=== PATIENT | female | born 1995 | race Caucasian/White ===

== ENCOUNTER 2017-08-04 20:43 | Emergency (ER) | payer OTHER ==
[2017-08-04 21:00] VITALS: O2SAT 96
[2017-08-04] MEDS ORDERED: LIDOCAINE 1% 10 ML VIAL INJ ONE (21:08)
[2017-08-04] MEDS ORDERED: SULFA/TRIMETH 800/160 (DS) TAB 1 EA TAB PO ONE (21:28)
[2017-08-04] MEDS ORDERED: TETANUS,DIPHTHERIA,PERTUSSIS 1 EA SYG IM ONE (21:45)
--- NOTE | 2017-08-04 21:48 | ED.PDOC ---
History of Present Illness - General Chief Complaint: Laceration Stated Complaint: hand laceration Time Seen by Provider: 08/04/17 20:45 Source: patient Exam Limitations: no limitations - History of Present Illness Initial Comments: the patient is a 22-year-old female presenting to emergency room secondary to a laceration over the metacarpal phalangeal joint of the second digit of the right hand. She cut it with a cooking on a farm accident. Laceration is approximately 1.5 cm in length. It does extend down to a partial laceration of the tendon. Laceration is approximately 30% the depth of the tendon. The finger appears to be neurovascularly intact. Tendon function remains intact. Estimated blood loss probably 5 cc. She does have a very small area just distal to the laceration of mild numbness. This extinguishes prior to the proximal interphalangeal joint. Timing/Duration: momentarily Severity: mild Improving Factors: nothing Worsening Factors: nothing Associated Symptoms: denies symptoms Allergies/Adverse Reactions: Allergies NO KNOWN ALLERGY Allergy (Verified 08/04/17 21:11) Home Medications: Ambulatory Orders Abilify 30 05/15/14 Lexapro 10 QAM 05/15/14 Trazodone HCl 05/15/14 Sulfa/Trimeth 800/160 (Ds) Tab [Bactrim DS Tab] 1 ea PO DAILY #3 tab 08/04/17 Review of Systems - Review of Systems Constitutional: States: no symptoms reported EENTM: States: no symptoms reported Respiratory: States: no symptoms reported Cardiology: States: no symptoms reported Gastrointestinal/Abdominal: States: no symptoms reported Genitourinary: States: no symptoms reported Musculoskeletal: States: no symptoms reported Skin: States: see HPI Neurological: States: see HPI Endocrine: States: no symptoms reported All other Systems: No Change from Baseline Past Medical History (General) - Patient Medical History Hx Seizures: No Hx Asthma: No Hx Cardiac Disorders: No Hx Diabetes: No Surgical History: no surgical history - Vaccination History Hx Tetanus, Diphtheria Vaccination: No Hx Influenza Vaccination: No Hx Pneumococcal Vaccination: No - Social History Hx Tobacco Use: No Hx Chewing Tobacco Use: No Hx Alcohol Use: No Hx Substance Use: No Hx Substance Use Treatment: No Hx Depression: No Hx Physical Abuse: No Hx Emotional Abuse: No Hx Suspected Abuse: No - Female History Hx Last Menstrual Period: 03/31/14 Patient : No - ?. Family Medical History - Family History Mother Family History: No Known Living Status: Still Living Hx Family Asthma: No Hx Family Congestive Heart Failure: No Hx Family Hypertension: No Hx Family Stroke: No Hx Cardiac Disease: No Hx Family Diabetes: No Hx Family Cancer: No Physical Exam - Physical Exam General Appearance: Alert, Comfortable, No apparent distress Eye Exam: bilateral normal Ears, Nose, Throat: hearing grossly normal Respiratory: no respiratory distress, no accessory muscle use Cardiovascular/Chest: normal peripheral pulses, no edema Peripheral Pulses: radial,right: 2+, radial,left: 2+ Rectal Exam: deferred Extremity: normal range of motion, no pedal edema, normal capillary refill 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 There is a partial tendon laceration that is not deep enough to sew. Tendon function remains intact. The patient is to avoid full flexion of the finger for the next 6-8 weeks. Risk and benefits of repair were explained and patient agreed to proceed. Wound was irrigated with 250 cc of sterile saline. 1% lidocaine without epinephrine was used 1 cc for local anesthetic. 3 simple sutures of 4- 0 Ethilon were used for reapproximation. Estimated blood loss is 5 cc. Patient tolerated the repair well. She was given a dose of Bactrim here. She was given a tetanus shot here. She will be placed on 3 days of Bactrim as an outpatient. Sutures need to be removed in 10 days. ER warnings are given for any evidence of infection or complications. Departure - Departure Clinical Impression: Accidental laceration Disposition: Discharge to Home or Self Care Condition: Fair Departure Forms: ED Discharge - Pt. Copy, Patient Portal Self Enrollment Instructions: DI for Laceration Repair, DI for Laceration Repair -- Simple Diet: regular diet Activity: increase activity as tolerated - avoid flexing the second digit of the right hand for the next 6-8 weeks. Referrals: Katie Montalvo NP [Primary Care Provider] - 1-2 Weeks Prescriptions: Sulfa/Trimeth 800/160 (Ds) Tab [Bactrim DS Tab] 1 ea PO DAILY #3 tab Home Medications: Ambulatory Orders Abilify 30 05/15/14 Lexapro 10 QAM 05/15/14 Trazodone HCl 05/15/14 Sulfa/Trimeth 800/160 (Ds) Tab [Bactrim DS Tab] 1 ea PO DAILY #3 tab 08/04/17 Additional Instructions: the patient is a 22-year-old female presenting with a laceration over the metacarpal phalangeal joint of the second digit of the right hand. There is a partial tendon laceration that is not deep enough to sew. Tendon function remains intact. The patient is to avoid full flexion of the finger for the next 6-8 weeks. 3 simple sutures of 4-0 Ethilon were used for reapproximation. Estimated blood loss is 5 cc. Patient tolerated the repair well. She was given a dose of Bactrim here. She was given a tetanus shot here. She will be placed on 3 days of Bactrim as an outpatient. Sutures need to be removed in 10 days. ER warnings are given for any evidence of infection or complications.
[2017-08-04 22:07] VITALS: BP 109/63; TEMP 98
== END 2017-08-04 22:06 | disposition home or self-care (01) ==
LOC: ER 20:43
DX: S61.210A Laceration without foreign body of right index finger without damage to nail, initial encounter (principal); Z23 Encounter for immunization; W45.8XXA Other foreign body or object entering through skin, initial encounter; Y92.79 Other farm location as the place of occurrence of the external cause

== ENCOUNTER 2018-06-01 16:46 | Emergency (ER) | payer OTHER ==
--- NOTE | 2018-06-01 17:17 | ED.PDOC ---
History of Present Illness - General Chief Complaint: Behavioral / Psych Stated Complaint: hearing voices,emotional Time Seen by Provider: 06/01/18 17:13 Source: patient, family Exam Limitations: clinical condition - History of Present Illness Initial Comments: patient comes in today seeking inpatient psychological care. Patient had been diagnosed with schizophrenia since age 20. She is in hospitalized multiple times for psychotic breaks. Patient stated that she was fairly well controlled a year ago. However, since then she's been undergoing significant increases in stress. She also admits that she is intermittently not taken her medications on a regular basis and had not seen a doctor for some time prior to 2 months ago. 2 months ago she saw her psychiatrist or her medications were adjusted. Since then her auditory hallucinations have started up again and they have worsened over the past couple of weeks. Patient states she hears multiple voices both male and female in both years. They usually give insults to her per do not ask her to harm herself or anybody else. Patient's family members and friends saw her today in crisis. They contacted [facility] and she was instructed to come here for evaluation. Patient denies suicidal or homicidal ideations. However, she states she believes she is in crisis at this time is unable to do basic activities of daily living because of both the hallucinations and her reaching her breaking point. Patient has severe anxiety and crying episodes. Patient is not able to handle her activities of daily living. Timing/Duration: getting worse Severity: severe Associated Symptoms: anxiety, impaired concentration, other Allergies/Adverse Reactions: Allergies NO KNOWN ALLERGY Allergy (Verified 08/04/17 21:11) Home Medications: Ambulatory Orders Abilify 30 05/15/14 Lexapro 10 QAM 05/15/14 Trazodone HCl 05/15/14 Sulfa/Trimeth 800/160 (Ds) Tab [Bactrim DS Tab] 1 ea PO DAILY #3 tab 08/04/17 Klonopin 06/01/18 Seroquel 06/01/18 Review of Systems - Review of Systems Constitutional: States: no symptoms reported. Denies: diaphoresis, fever, weakness EENTM: States: no symptoms reported. Denies: eye pain, ear pain, nose congestion Respiratory: States: no symptoms reported. Denies: cough, short of breath, wheezing Cardiology: States: no symptoms reported. Denies: chest pain, palpitations Gastrointestinal/Abdominal: States: no symptoms reported. Denies: abdominal pain, constipation, diarrhea Genitourinary: States: no symptoms reported. Denies: dysuria Musculoskeletal: States: no symptoms reported Skin: States: no symptoms reported Neurological: States: see HPI Past Medical History (General) - Patient Medical History Hx Seizures: No Hx Stroke: No Hx Asthma: No Hx Cardiac Disorders: No Hx Congestive Heart Failure: No Hx Diabetes: No Surgical History: no surgical history - Vaccination History Hx Tetanus, Diphtheria Vaccination: No Hx Influenza Vaccination: No Hx Pneumococcal Vaccination: No - Social History Hx Tobacco Use: No Hx Chewing Tobacco Use: No Hx Alcohol Use: No Hx Substance Use: No Hx Substance Use Treatment: No Hx Depression: No Hx Physical Abuse: No Hx Emotional Abuse: No Hx Suspected Abuse: No - Female History Patient is a Female of Child Bearing Age (10 -59 yrs old): Yes - 4 months ago- states her periods are irregular due to meds Hx Last Menstrual Period: 03/31/14 Patient : No - ?. Family Medical History - Family History Mother Family History: No Known Living Status: Still Living Hx Family Asthma: No Hx Family Congestive Heart Failure: No Hx Family Hypertension: No Hx Family Stroke: No Hx Cardiac Disease: No Hx Family Diabetes: No Hx Family Cancer: No Physical Exam - Physical Exam General Appearance: Anxious, Obvious distress, Well Nourished Eyes, Ears, Nose, Throat Exam: PERRL/EOMI, normal ENT inspection, TMs normal, pharynx normal Neck: non-tender, full range of motion, supple, normal inspection Respiratory: chest non-tender, lungs clear, normal breath sounds, no respiratory distress Cardiovascular/Chest: normal peripheral pulses, regular rate, rhythm, no edema, no gallop, no JVD, no murmur Peripheral Pulses: radial,right: 2+, radial,left: 2+ Gastrointestinal/Abdominal: normal bowel sounds, non tender, soft, no organomegaly, no pulsatile mass Extremities Exam: non-tender Neurological: alert, 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, oriented x 3, depressed affect Appearance: disheveled Behavior/Eye Contact/Speech: cooperative, good eye contact, increased rate of speech Thoughts/Hallucinations: auditory hallucinations, flight of ideas Skin Exam: normal color Progress - Progress Progress: 06/01/18 18:23 06/01/18 17:30 EKG STAT Laboratory Results WBC 4.7 K/mm3 (4.8-10.8) L 06/01/18 17:39 RBC 5.31 M/mm3 (4.20-5.40) 06/01/18 17:39 Hgb 14.7 gm/dL (12.0-16.0) 06/01/18 17:39 Hct 44.3 % (36.0-47.0) 06/01/18 17:39 MCV 83.4 fl (81.0-99.0) 06/01/18 17:39 MCH 27.6 pg (27.0-31.0) 06/01/18 17:39 MCHC 33.1 g/dL (33.0-37.0) 06/01/18 17:39 RDW 13.2 % (11.5-14.5) 06/01/18 17:39 Plt Count 161 K/mm3 (130-400) 06/01/18 17:39 MPV 9.7 fl (7.40-10.4) 06/01/18 17:39 Absolute Neuts (auto) 2.90 K/uL (1.8-6.8) 06/01/18 17:39 Absolute Lymphs (auto) 1.30 K/uL (1.0-3.4) 06/01/18 17:39 Absolute Monos (auto) 0.50 K/uL (0.2-0.8) 06/01/18 17:39 Absolute Eos (auto) 0.00 K/uL (0.0-0.4) 06/01/18 17:39 Absolute Basos (auto) 0.00 K/uL (0.0-0.1) 06/01/18 17:39 Neutrophils % 61.5 % (42.0-78.0) 06/01/18 17:39 Lymphocytes % 27.4 % (20.0-50.0) 06/01/18 17:39 Monocytes % 10.4 % (2.0-9.0) H 06/01/18 17:39 Eosinophils % 0.1 % (1.0-5.0) L 06/01/18 17:39 Basophils % 0.6 % (0.0-2.0) 06/01/18 17:39 Sodium 139 mmol/L (135-145) 06/01/18 17:39 Potassium 3.9 mmol/L (3.6-5.0) 06/01/18 17:39 Chloride 104 mmol/L (101-111) 06/01/18 17:39 Carbon Dioxide 22 mmol/L (21-31) 06/01/18 17:39 Anion Gap 16.9 (12-18) 06/01/18 17:39 BUN 14 mg/dL (7-18) 06/01/18 17:39 Creatinine 0.69 mg/dL (0.6-1.3) 06/01/18 17:39 BUN/Creatinine Ratio 20.3 (10-20) H 06/01/18 17:39 Random Glucose 95 mg/dL (70-105) 06/01/18 17:39 Serum Osmolality 277.8 mOsm/L (275-295) 06/01/18 17:39 Calcium 9.4 mg/dL (8.4-10.2) 06/01/18 17:39 Total Bilirubin 0.9 mg/dL (0.2-1.0) 06/01/18 17:39 AST 18 IU/L (10-42) 06/01/18 17:39 ALT 20 IU/L (10-60) 06/01/18 17:39 Alkaline Phosphatase 84 IU/L (42-121) 06/01/18 17:39 Serum Total Protein 7.9 gm/dL (6.4-8.2) 06/01/18 17:39 Albumin 4.9 g/dl (3.2-5.5) 06/01/18 17:39 Globulin 3.0 gm/dL (2.3-3.5) 06/01/18 17:39 Albumin/Globulin Ratio 1.6 (1.1-1.9) 06/01/18 17:39 Serum HCG, Qual Negative 06/01/18 17:39 Urine Color Dk yellow (Yellow) H 06/01/18 17:19 Urine Appearance Sl cloudy (Clear) 06/01/18 17:19 Urine pH 5.0 (4.5-7.8) 06/01/18 17:19 Ur Specific [place] >= 1.030 (1.005-1.030) 06/01/18 17:19 Urine Protein 30 mg/dL 06/01/18 17:19 Urine Glucose (UA) Negative mg/dL (Negative) 06/01/18 17:19 Urine Ketones 15 mg/dL (NEGATIVE) H 06/01/18 17:19 Urine Blood Negative (Negative) 06/01/18 17:19 Urine Nitrite Negative 06/01/18 17:19 Urine Bilirubin Small (NEGATIVE) H 06/01/18 17:19 Urine Urobilinogen 0.2 mg/dL (0.2-1.0) 06/01/18 17:19 Ur Leukocyte Esterase Negative (Negative) 06/01/18 17:19 Urine RBC 1-3 /hpf 06/01/18 17:19 Urine WBC 1-3 /hpf 06/01/18 17:19 Ur Epithelial Cells 10-20 /hpf 06/01/18 17:19 Urine Bacteria Rare 06/01/18 17:19 Urine Mucus Trace 06/01/18 17:19 Urine Opiates Screen Negative ng/mL (2000) 06/01/18 17:39 Acetaminophen < 10.0 ug/mL (10.0-30.0) L 06/01/18 17:39 Urine Barbiturates Negative ng/mL (200) 06/01/18 17:39 Ur Phencyclidine Scrn Negative ng/mL (25) 06/01/18 17:39 U Amphetamin/Meth Scrn Negative ng/mL (1000) 06/01/18 17:39 U Benzodiazepines Scrn Positive ng/mL (200) H 06/01/18 17:39 U Cocaine Metab Screen Negative ng/mL (300) 06/01/18 17:39 U Cannabinoids Screen Negative ng/mL (50) 06/01/18 17:39 Ethyl Alcohol < 5.40 mg/dL (0-79) 06/01/18 17:39 Chest Xray: normal 06/01/18 18:35 [facility] contacted. Patient medically cleared and we request evaluation for psychotic break with auditory hallucinations and rapid decompensation requesting in patient treatment. They are in a meeting but will come to evaluate as soon as they are able. 06/01/18 19:12 [facility] has evaluated and will accept at [place] - EKG/XRAY/CT EKG: Sinus, Tachy, no ST T wave changes Comments: HR of 118 with normal axis Departure - Departure Clinical Impression: Acute psychosis, Hallucinations Disposition: Transfer to [facility] Hospital Condition: Fair Departure Forms: ED Discharge - Pt. Copy, Patient Portal Self Enrollment Instructions: DI for Psychosis Diet: regular diet Activity: increase activity as tolerated Referrals: Veronika Basurto NP [Primary Care Provider] - 1-2 Weeks Home Medications: Ambulatory Orders Abilify 30 05/15/14 Lexapro 10 QAM 05/15/14 Trazodone HCl 05/15/14 Sulfa/Trimeth 800/160 (Ds) Tab [Bactrim DS Tab] 1 ea PO DAILY #3 tab 08/04/17 Klonopin 06/01/18 Seroquel 06/01/18 Transfer to Outside Facility - Transfer Information Accepting Facility: [place] Reason for Transfer: specialized care not available
--- NOTE | 2018-06-01 17:33 | RAD ---
EXAM DESCRIPTION: Chest,1 View CLINICAL HISTORY: 23 years Female, medical clearance COMPARISON: None available. TECHNIQUE: AP radiograph of the chest was obtained. FINDINGS: Trachea is midline.The cardiomediastinal silhouette is normal in size. The pulmonary vasculature is within normal limits.The lungs are clear with no acute consolidation.No evidence of pleural effusions. IMPRESSION: No acute cardiopulmonary process. Electronically signed by: Maximiliano Cramer MD 06/01/2018 5:31 PM CDT
[2018-06-01 18:05] VITALS: O2SAT 99
[2018-06-01 19:35] VITALS: TEMP 99.4
[2018-06-01 20:16] VITALS: BP 113/71
== END 2018-06-01 20:17 ==
LOC: ER 16:46
DX: F23 Brief psychotic disorder (principal); R44.0 Auditory hallucinations; F20.9 Schizophrenia, unspecified; Z79.899 Other long term (current) drug therapy

== ENCOUNTER → 2019-12-18 | Outpatient (CLI) | payer OTHER | LOC: LAB.O 11:09 | PROVIDERS: ATTEND Family Medicine | DX: N89.8 Other specified noninflammatory disorders of vagina (principal) ==

== ENCOUNTER 2020-06-12 18:23 | Emergency (ER) | payer OTHER ==
[2020-06-12] MEDS ORDERED: SODIUM CHLORIDE 0.9% 1000ML 1,000 ML IVS PRN (18:31)
--- NOTE | 2020-06-12 18:34 | ED.PDOC ---
History of Present Illness - General Time Seen by Provider: 06/12/20 18:31 - History of Present Illness Initial Comments: 25 yo F with a pmh of schizophrenia comes in with the c/c of dizziness. states she was hanging out with her friends when it happens. States she is stressed because she had intercourse several days ago, and has been having spotting. Was suppose to have LMP may 31. denies current dizziness, chest pain or shortness of breath. denies drug use. Allergies/Adverse Reactions: Allergies NO KNOWN ALLERGY Allergy (Verified 08/04/17 21:11) Home Medications: Ambulatory Orders Lexapro 10 QAM 05/15/14 Lurasidone HCl [Latuda] 60 mg PO DAILY 06/12/20 Mirtazapine [Remeron] 15 mg PO DAILY 06/12/20 Sulfamethoxazole-Trimethoprim [Bactrim Ds 800-160 mg] 1 tab PO BID 5 Days #10 tab 06/12/20 Review of Systems - Review of Systems Constitutional: Denies: diaphoresis, fever EENTM: Denies: eye pain, blurred vision Respiratory: Denies: cough, orthopnea, short of breath Cardiology: Denies: chest pain, edema, palpitations, syncope Gastrointestinal/Abdominal: Denies: abdominal pain, constipation, diarrhea, nausea, vomiting Genitourinary: Denies: discharge, dysuria, frequency, hematuria Musculoskeletal: Denies: back pain, joint pain, joint swelling, muscle pain, muscle stiffness Neurological: States: anxiety. Denies: depressed, headache, numbness, paresthesia, pre-existing deficit, seizure, tingling, tremors, weakness Endocrine: Denies: excessive sweating, intolerance to cold, intolerance to heat, unexplained weight gain, unexplained weight loss Hematologic/Lymphatic: Denies: anemia, blood clots, easy bleeding, easy bruising Past Medical History (General) - Patient Medical History Hx Seizures: No Hx Stroke: No Hx Asthma: No Hx Cardiac Disorders: No Hx Congestive Heart Failure: No Hx Diabetes: No - Vaccination History Hx Tetanus, Diphtheria Vaccination: No Hx Influenza Vaccination: No Hx Pneumococcal Vaccination: No - Social History Hx Tobacco Use: No Hx Chewing Tobacco Use: No Hx Alcohol Use: No Hx Substance Use: No Hx Substance Use Treatment: No Hx Depression: No Hx Physical Abuse: No Hx Emotional Abuse: No Hx Suspected Abuse: No - Female History Hx Last Menstrual Period: 03/31/14 Patient : No - ?. Family Medical History - Family History Mother Family History: No Known Living Status: Still Living Hx Family Asthma: No Hx Family Congestive Heart Failure: No Hx Family Hypertension: No Hx Family Stroke: No Hx Cardiac Disease: No Hx Family Diabetes: No Hx Family Cancer: No Physical Exam - Physical Exam General Appearance: Alert, Comfortable, No apparent distress Eye Exam: bilateral normal Ears, Nose, Throat: hearing grossly normal, normal ENT inspection Neck: non-tender, full range of motion, supple, normal inspection, carotid bruit Respiratory: chest non-tender, lungs clear, normal breath sounds, no respiratory distress, no accessory muscle use Cardiovascular/Chest: normal peripheral pulses, regular rate, rhythm, no edema, no gallop, no JVD, no murmur Peripheral Pulses: radial,right: 2+, radial,left: 2+ Gastrointestinal/Abdominal: normal bowel sounds, non tender, soft, no organomegaly, no pulsatile mass, other - pelvic exam with box car loader, no evidence of laceration, small amount of old blood in vaginal, no cervicitis, no discharge, no cmt, normal adenxa, nontender uterus Rectal Exam: deferred Back Exam: normal inspection, no CVA tenderness, no vertebral tenderness Extremity: normal range of motion, non-tender, normal inspection, no pedal edema, no calf tenderness Neurologic: senior software development manager II-XII nml as tested, no motor/sensory deficits, alert, normal mood/affect, oriented x 3 Skin Exam: normal color, warm/dry Lymphatic: no adenopathy Progress - Progress Progress: 06/12/20 18:35 patient states she has not been drinking enough water. Will get blood work, ekg, cxr, ua test. Will give 1 LNSBolus. Orthostatic vital sign stable. EKG shows NSR HR 74. no significant change from prior in 06/01/2018, t wave inversion in v2. no stemi 06/12/20 19:03 blood work unremarkable. patient feels better after IVF. CXR no acute pathology. orthostatics negative. Pelvic exam unremarkable. 06/12/20 20:00 will treat UTI. The data reviewed when caring for this patient included: nurse notes etc. The history and assessments from nurses notes were reviewed and considered, and the patient's home medication list was also reviewed and considered. My assessment and the results of testing completed here in the ED were discussed with the patient/family. All questions were answered, and they express understanding of my assessment and the plan. They have been instructed to return if their symptoms worsen, and have been asked to follow up with their primary care physician to recheck today's presenting complaint. I have reviewed medication, benefits, alternative and side effects. Patient decided to proceed with medication. Patient discharge home in stable condition. - Results/Orders Results/Orders: 06/12/20 18:31 Sodium Chloride 0.9% 1000ML [Ns 1000 ml] 1,000 ml IVS STAT 06/12/20 18:45 EKG STAT 06/12/20 19:55 URINE CULTURE W/COLONY COUNT Stat 06/12/20 20:19 WET PREP Stat Laboratory Results WBC 7.3 K/mm3 (4.8-10.8) 06/12/20 18:55 RBC 4.99 M/mm3 (4.20-5.40) 06/12/20 18:55 Hgb 14.0 gm/dL (12.0-16.0) 06/12/20 18:55 Hct 41.2 % (36.0-47.0) 06/12/20 18:55 MCV 82.6 fl (81.0-99.0) 06/12/20 18:55 MCH 28.1 pg (27.0-31.0) 06/12/20 18:55 MCHC 34.0 g/dL (33.0-37.0) 06/12/20 18:55 RDW 12.9 % (11.5-14.5) 06/12/20 18:55 Plt Count 163 K/mm3 (130-400) 06/12/20 18:55 MPV 10.1 fl (7.40-10.4) 06/12/20 18:55 Absolute Neuts (auto) 3.60 K/uL (1.8-6.8) 06/12/20 18:55 Absolute Lymphs (auto) 3.00 K/uL (1.0-3.4) 06/12/20 18:55 Absolute Monos (auto) 0.50 K/uL (0.2-0.8) 06/12/20 18:55 Absolute Eos (auto) 0.10 K/uL (0.0-0.4) 06/12/20 18:55 Absolute Basos (auto) 0.10 K/uL (0.0-0.1) 06/12/20 18:55 Neutrophils % 48.9 % (42.0-78.0) 06/12/20 18:55 Lymphocytes % 41.5 % (20.0-50.0) 06/12/20 18:55 Monocytes % 6.5 % (2.0-9.0) 06/12/20 18:55 Eosinophils % 1.9 % (1.0-5.0) 06/12/20 18:55 Basophils % 1.2 % (0.0-2.0) 06/12/20 18:55 Sodium 139 mmol/L (135-145) 06/12/20 18:55 Potassium 3.4 mmol/L (3.6-5.0) L 06/12/20 18:55 Chloride 109 mmol/L (101-111) 06/12/20 18:55 Carbon Dioxide 22 mmol/L (21-31) 06/12/20 18:55 Anion Gap 11.4 (12-18) L 06/12/20 18:55 BUN 12 mg/dL (7-18) 06/12/20 18:55 Creatinine 0.70 mg/dL (0.6-1.3) 06/12/20 18:55 BUN/Creatinine Ratio 17.1 (10-20) 06/12/20 18:55 Random Glucose 114 mg/dL (70-105) H 06/12/20 18:55 Serum Osmolality 278.2 mOsm/L (275-295) 06/12/20 18:55 Calcium 8.5 mg/dL (8.4-10.2) 06/12/20 18:55 Total Bilirubin 0.3 mg/dL (0.2-1.0) 06/12/20 18:55 AST 13 IU/L (10-42) 06/12/20 18:55 ALT 11 IU/L (10-60) 06/12/20 18:55 Alkaline Phosphatase 55 IU/L (42-121) 06/12/20 18:55 Troponin I < 0.02 ng/mL (0.01-0.05) 06/12/20 18:55 Serum Total Protein 6.8 gm/dL (6.4-8.2) 06/12/20 18:55 Albumin 4.2 g/dl (3.2-5.5) 06/12/20 18:55 Globulin 2.6 gm/dL (2.3-3.5) 06/12/20 18:55 Albumin/Globulin Ratio 1.6 (1.1-1.9) 06/12/20 18:55 Serum HCG, Qual Negative (NEGATIVE) 06/12/20 18:55 Urine Color Yellow (Yellow) 06/12/20 19:55 Urine Appearance Cloudy (Clear) H 06/12/20 19:55 Urine pH 6.5 (4.5-7.8) 06/12/20 19:55 Ur Specific [place] >= 1.030 (1.005-1.030) 06/12/20 19:55 Urine Protein Negative mg/dL 06/12/20 19:55 Urine Glucose (UA) Negative mg/dL (Negative) 06/12/20 19:55 Urine Ketones Trace mg/dL (NEGATIVE) 06/12/20 19:55 Urine Blood Small (Negative) H 06/12/20 19:55 Urine Nitrite Positive H 06/12/20 19:55 Urine Bilirubin Negative (NEGATIVE) 06/12/20 19:55 Urine Urobilinogen 1.0 mg/dL (0.2-1.0) 06/12/20 19:55 Ur Leukocyte Esterase Negative (Negative) 06/12/20 19:55 Urine RBC 1-3 /hpf 06/12/20 19:55 Urine WBC 3-5 /hpf H 06/12/20 19:55 Ur Epithelial Cells 0-1 /hpf 06/12/20 19:55 Urine Bacteria 4+ H 06/12/20 19:55 Urine Opiates Screen Negative ng/mL (2000) 06/12/20 19:55 Urine Barbiturates Negative ng/mL (200) 06/12/20 19:55 Ur Phencyclidine Scrn Negative ng/mL (25) 06/12/20 19:55 U Amphetamin/Meth Scrn Negative ng/mL (1000) 06/12/20 19:55 U Benzodiazepines Scrn Negative ng/mL (200) 06/12/20 19:55 U Cocaine Metab Screen Negative ng/mL (300) 06/12/20 19:55 U Cannabinoids Screen Negative ng/mL (50) 06/12/20 19:55 Departure - Departure Clinical Impression: Dizziness UTI (urinary tract infection) Qualifiers: Urinary tract infection type: acute cystitis Hematuria presence: with hematuria Qualified Code(s): N30.01 - Acute cystitis with hematuria Disposition: Discharge to Home or Self Care Condition: Good Departure Forms: ED Discharge - Pt. Copy, Patient Portal Self Enrollment Instructions: Urinary Tract Infections in Adults, Dehydration, Adult (DC), Why Water Is Important to Health Referrals: Milena Gallardo MD [Primary Care Provider] - 1-5 Days Prescriptions: Sulfamethoxazole-Trimethoprim [Bactrim Ds 800-160 mg] 1 tab PO BID 5 Days #10 tab Home Medications: Ambulatory Orders Lexapro 10 QAM 05/15/14 Lurasidone HCl [Latuda] 60 mg PO DAILY 06/12/20 Mirtazapine [Remeron] 15 mg PO DAILY 06/12/20 Sulfamethoxazole-Trimethoprim [Bactrim Ds 800-160 mg] 1 tab PO BID 5 Days #10 tab 06/12/20
[2020-06-12 18:51] VITALS: TEMP 98.9
--- NOTE | 2020-06-12 19:01 | RAD ---
EXAM:Chest,2 Views CLINICAL INDICATION: Dizziness COMPARISON: 06/01/2018 FINDINGS:Two views of the chest were obtained. The heart size is normal. The pulmonary vascularity is unremarkable. The lungs are clear. There is no consolidation, infiltrate, pleural effusion, or pneumothorax. IMPRESSION: No evidence of active pulmonary disease. Electronically signed by: Christopher Knott MD 06/12/2020 7:00 PM CDT
[2020-06-12 21:09] VITALS: BP 107/71; O2SAT 98
== END 2020-06-12 21:05 | disposition home or self-care (01) ==
LOC: ER 18:23
DX: N30.01 Acute cystitis with hematuria (principal); R42 Dizziness and giddiness; F20.9 Schizophrenia, unspecified; Z79.899 Other long term (current) drug therapy
CPT/HCPCS: 36415; 71046; 80053; 80307; 81001; 84484; 84703; 85025; 87086; 87088; 87186; 87210; 93005; J7030

== ENCOUNTER → 2020-07-28 | Outpatient (CLI) | payer OTHER | LOC: LAB.O 15:53 | PROVIDERS: ATTEND Family Medicine | DX: R82.79 Other abnormal findings on microbiological examination of urine (principal) ==